=== PATIENT | female | born 1960 | race Caucasian/White ===

== ENCOUNTER → 2016-10-06 | Outpatient (CLI) | payer MEDICARE, OTHER ==
[~2016-10-06] MED LIST: ACYC200C PO; ACYC400T PO; ADV100 IH; ADV500 IH; ASPI-556 PO; CLON2 PO; COMBISP IH; CYCL10 PO; DIPH25 PO; DOCU250C91 PO; DSS100 PO; DULO60CA44 PO; FAMO-135 PO; IBUP-1547 PO; IBUP100O11 PO; IPRA3AMP4 IH; LACT1CAP38 PO; LEVO100 PO; LISI-622 PO; MELA3TAB10 PO; OLAN10TA3 PO; OLAN15TA2 PO; OXYC-522 PO; PERCT10 PO; RIVA20TA PO; SIMV-260 PO; TIOT4MIS2 IH; WARF7.5 PO; ZOLP5 PO; [UNRECOGNIZED DRUG - CODE] IM
[2016-10-06 11:52] VITALS: BP 128/70
[2016-10-06 14:46] LABS: GLUCOSE COMMENT 1 Doctor Notified; GLUCOSE,POINT OF CARE 82 MG/DL (70-110)
== END | disposition home or self-care (01) ==
LOC: SRCNTR 11:36
PROVIDERS: ATTEND Hospitalist
DX: J44.9 Chronic obstructive pulmonary disease, unspecified (principal); G47.33 Obstructive sleep apnea (adult) (pediatric); E66.01 Morbid (severe) obesity due to excess calories; G35 Multiple sclerosis; F99 Mental disorder, not otherwise specified; F41.9 Anxiety disorder, unspecified; M54.9 Dorsalgia, unspecified; Z72.0 Tobacco use
CPT/HCPCS: 82962; G0463

== ENCOUNTER → 2016-11-06 | Outpatient (CLI) | payer MEDICARE, OTHER ==
[~2016-11-06] VITALS: Ht 149.9 cm; Wt 83.0 kg
[~2016-11-06] MED LIST changes: -COMBISP IH; -CYCL10 PO; -FAMO-135 PO; -WARF7.5 PO
[2016-11-06 11:54] VITALS: BP 133/83
== END | disposition home or self-care (01) ==
LOC: SRCNTR 11:50
PROVIDERS: ATTEND Hospitalist
DX: I10 Essential (primary) hypertension (principal); E03.9 Hypothyroidism, unspecified; E78.5 Hyperlipidemia, unspecified; M54.5 Low back pain; G47.33 Obstructive sleep apnea (adult) (pediatric); F17.210 Nicotine dependence, cigarettes, uncomplicated; F41.9 Anxiety disorder, unspecified; G35 Multiple sclerosis; J44.9 Chronic obstructive pulmonary disease, unspecified; F99 Mental disorder, not otherwise specified; G89.4 Chronic pain syndrome; F32.9 Major depressive disorder, single episode, unspecified
CPT/HCPCS: G0463

== ENCOUNTER 2016-11-11 23:27 | Emergency (ER) | payer MEDICARE, OTHER ==
[~2016-11-11] VITALS: Ht 152.4 cm; Wt 95.0 kg
[~2016-11-11 23:27] MED LIST changes: -ACYC200C PO; -ADV100 IH; -DSS100 PO; -IBUP-1547 PO; -IBUP100O11 PO; -MELA3TAB10 PO; -OLAN10TA3 PO; -PERCT10 PO
[2016-11-11] MEDS ORDERED: SODIUM CHLORIDE 0.9% 1,000 ML IV ONE (23:40)
[2016-11-11] MEDS ORDERED: KETOROLAC TROMETHAMINE 60 MG/2 ML VIAL IM ONE (23:45)
[2016-11-11] MEDS ORDERED: ONDANSETRON HCL 4 MG/2 ML VIAL IVP ONE (23:45)
[2016-11-11] MEDS ORDERED: KETOROLAC TROMETHAMINE 30 MG/ML VIAL IVP ONE (23:45)
[2016-11-11] MEDS ORDERED: MELA3TAB10 PO (23:56)
[2016-11-11] MEDS ORDERED: IBUP100O11 PO (23:57)
[2016-11-12 01:23] VITALS: BP 128/65
[2016-11-17] MEDS ORDERED: PERCT10 PO (13:09)
[2016-11-17] MEDS ORDERED: ACYC200C PO (13:09)
[2016-11-17] MEDS ORDERED: CLON2 PO (13:09)
== END 2016-11-12 01:52 | disposition home or self-care (01) ==
LOC: EMS 23:28
DX: M16.11 Unilateral primary osteoarthritis, right hip (principal); I10 Essential (primary) hypertension; E78.00 Pure hypercholesterolemia, unspecified; J44.9 Chronic obstructive pulmonary disease, unspecified; F17.210 Nicotine dependence, cigarettes, uncomplicated; Z91.013 Allergy to seafood; Z88.8 Allergy status to other drugs, medicaments and biological substances; W19.XXXA Unspecified fall, initial encounter; Y93.89 Activity, other specified; Y92.89 Other specified places as the place of occurrence of the external cause; Y99.8 Other external cause status
CPT/HCPCS: 73502; 96372; 99284; J1885

== ENCOUNTER 2016-11-17 18:55 | Emergency (ER) | payer MEDICARE, OTHER ==
[~2016-11-17] VITALS: Ht 152.4 cm; Wt 72.7 kg
[~2016-11-17 18:55] MED LIST changes: -ADV100 IH; -ADV500 IH; -DSS100 PO; -IBUP-1547 PO; -KETOROLAC TROMETHAMINE 30 MG/ML VIAL IVP ONE; -OLAN10TA3 PO; -SIMV-260 PO; +SIMV20 PO
[2016-11-17] MEDS ORDERED: OxyCODONE HCL/ACETAMINOPHEN 5-325 MG TABLET PO ONE (22:30)
[2016-11-17 22:44] VITALS: BP 131/78
== END 2016-11-17 22:44 | disposition home or self-care (01) ==
LOC: EMS 18:59
DX: S32.591A Other specified fracture of right pubis, initial encounter for closed fracture (principal); G35 Multiple sclerosis; I10 Essential (primary) hypertension; F20.9 Schizophrenia, unspecified; J44.9 Chronic obstructive pulmonary disease, unspecified; F41.9 Anxiety disorder, unspecified; E78.00 Pure hypercholesterolemia, unspecified; F17.210 Nicotine dependence, cigarettes, uncomplicated; Z79.82 Long term (current) use of aspirin; Z91.013 Allergy to seafood; Z88.8 Allergy status to other drugs, medicaments and biological substances; W19.XXXA Unspecified fall, initial encounter; Y93.89 Activity, other specified; Y92.89 Other specified places as the place of occurrence of the external cause; Y99.8 Other external cause status
CPT/HCPCS: 99284; 99406

== ENCOUNTER → 2016-11-17 | Outpatient (CLI) | payer MEDICARE, OTHER ==
[~2016-11-17] MED LIST changes: +ACYC200C PO; -ACYC400T PO; +ADV100 IH; +DSS100 PO; +IBUP-1547 PO; +IBUP100O11 PO; -IPRA3AMP4 IH; +KETOROLAC TROMETHAMINE 30 MG/ML VIAL IVP ONE; -LACT1CAP38 PO; +MELA3TAB10 PO; +OLAN10TA3 PO; -OXYC-522 PO; +PERCT10 PO; -TIOT4MIS2 IH; -[UNRECOGNIZED DRUG - CODE] IM
[2016-11-17 12:35] VITALS: BP 145/92
== END | disposition home or self-care (01) ==
LOC: SRCNTR 12:11
PROVIDERS: ATTEND Hospitalist
DX: J44.9 Chronic obstructive pulmonary disease, unspecified (principal); M25.551 Pain in right hip; G35 Multiple sclerosis; F99 Mental disorder, not otherwise specified; G89.4 Chronic pain syndrome; G47.33 Obstructive sleep apnea (adult) (pediatric); F41.9 Anxiety disorder, unspecified; E03.9 Hypothyroidism, unspecified; M54.9 Dorsalgia, unspecified; E78.5 Hyperlipidemia, unspecified; F32.9 Major depressive disorder, single episode, unspecified; Z72.0 Tobacco use; Z71.6 Tobacco abuse counseling; Z91.81 History of falling
CPT/HCPCS: G0463; J1885

== ENCOUNTER 2016-11-18 22:55 | Emergency (ER) | payer MEDICARE, OTHER ==
[2016-11-20] MEDS ORDERED: OLAN10TA3 PO (18:58)
[2016-11-20] MEDS ORDERED: DSS100 PO (18:58)
[2016-11-20] MEDS ORDERED: IBUP-1547 PO (18:58)
[2016-11-20] MEDS ORDERED: ADV100 IH (22:37)
[2016-11-20] MEDS ORDERED: ADV500 IH (22:44)
[2016-11-20] MEDS ORDERED: MELA3TAB10 PO (22:49)
== END 2016-11-19 00:21 | disposition left against medical advice (07) ==
LOC: EMS 22:57
DX: M25.559 Pain in unspecified hip (principal); Z53.21 Procedure and treatment not carried out due to patient leaving prior to being seen by health care provider

== ENCOUNTER 2016-11-20 16:32 | Inpatient (IN) | payer MEDICARE, OTHER ==
[~2016-11-20 16:32] MED LIST changes: +SIMV-260 PO; -SIMV20 PO
[2016-11-20] MEDS ORDERED: OLAN10TA3 PO (18:58)
[2016-11-20] MEDS ORDERED: DSS100 PO (18:58)
[2016-11-20] MEDS ORDERED: IBUP-1547 PO (18:58)
[2016-11-20 19:00] VITALS: BP 109/58
[2016-11-20 19:24] VITALS: BP 127/76
[2016-11-20] MEDS: OxyCODONE HCL/ACETAMINOPHEN 10-325 MG TABLET PO PRN (19:31)
[2016-11-20] MEDS ORDERED: 0.9% SODIUM CHLORIDE 10 ML SYRINGE IVP PRN (20:00)
[2016-11-20] MEDS: OLANZapine 10 MG TABLET PO SCH (22:15)
[2016-11-20] MEDS ORDERED: ADV100 IH (22:37)
[2016-11-20] MEDS ORDERED: ADV500 IH (22:44)
[2016-11-20] MEDS ORDERED: MELA3TAB10 PO (22:49)
[2016-11-20] MEDS: ACYCLOVIR 200 MG CAPSULE PO SCH (23:36)
[2016-11-20] MEDS: RIVAROXABAN 20 MG TABLET PO SCH (23:36)
[2016-11-20] MEDS: FLUTICASONE/VILANTEROL 200-25 MCG/INH INHALER [14] IH SCH (23:36)
[2016-11-20] MEDS: SIMVASTATIN 20 MG TABLET PO SCH (23:36)
[2016-11-20] MEDS ORDERED: MAGNESIUM HYDROXIDE SUSPENSION 30 ML UDCUP PO PRN (23:45)
[2016-11-20] MEDS ORDERED: ONDANSETRON HCL 4 MG/2 ML VIAL IVP PRN (23:45)
[2016-11-20] MEDS ORDERED: ACETAMINOPHEN 325 MG TABLET PO PRN (23:45)
[2016-11-20] MEDS ORDERED: BISACODYL 10 MG RECTAL RECTAL SUPPOSITORY PR PRN (23:45)
[2016-11-20 23:49] VITALS: BP 118/59
[2016-11-21 00:37] LABS: BASOPHILS % (AUTO) 0.2 % (0.0-2.0); EOSINOPHILS % (AUTO) 1.9 % (1.0-6.0); HEMATOCRIT 36.7 % (36-46); HEMOGLOBIN 11.7 g/dL (12.0-16.0); LYMPHOCYTES # (AUTO) 2.6 K/uL (1.0-4.8); LYMPHOCYTES % (AUTO) 23.6 % (22.0-44.0); MEAN CORPUSCULAR HEMOGLOBIN 28.1 pg (26.0-34.0); MEAN CORPUSCULAR HGB CONC 31.9 G/dL (31.0-37.0); MEAN CORPUSCULAR VOLUME 88 fL (80-100); MONOCYTES # (AUTO) 0.8 K/uL (0.1-1.0); MONOCYTES % (AUTO) 6.9 % (2.0-9.0); NEUTROPHILS # (AUTO) 7.4 K/uL (1.8-7.7); NEUTROPHILS % (AUTO) 67.4 % (40.0-70.0); PLATELET COUNT (AUTO) 313 K/uL (150-450); RED BLOOD CELL COUNT(AUTO) 4.17 MIL/uL (4.00-5.20); RED CELL DISTRIBUTION WIDTH 16.5 % (11.5-14.5)
[2016-11-21 00:51] LABS: ANION GAP 3 mmol/L (8-16); CALCIUM, TOTAL 8.5 mg/dL (8.8-10.5); CARBON DIOXIDE 35 mmol/L (22-29); CHLORIDE 88 mmol/L (98-107); CREATININE 0.77 mg/dL (0.60-1.30); GLOMERULAR FILTR. RATE CALC > 60 mL/min (>60); POTASSIUM 3.2 mmol/L (3.5-5.1); SODIUM SERUM 126 mmol/L (136-145); UREA NITROGEN, BLOOD 6 mg/dL (7-18)
[2016-11-21 00:57] LABS: ALANINE AMINOTRANSFERASE 10 U/L (12-78); ALBUMIN 2.9 g/dL (3.4-5.0); ASPARTATE AMINOTRANSFERASE 9 U/L (15-37); BILIRUBIN,TOTAL 0.2 mg/dL (0.1-1.0); TOTAL PROTEIN, SERUM 6.4 g/dL (6.4-8.2)
[2016-11-21] MEDS: OxyCODONE HCL/ACETAMINOPHEN 10-325 MG TABLET PO PRN ×4 (02:16→22:37)
[2016-11-21 04:51] VITALS: BP 117/65
[2016-11-21 05:58] LABS: BASOPHILS % (AUTO) 0.3 % (0.0-2.0); EOSINOPHILS % (AUTO) 2.8 % (1.0-6.0); HEMATOCRIT 38.2 % (36-46); HEMOGLOBIN 12.1 g/dL (12.0-16.0); LYMPHOCYTES # (AUTO) 2.5 K/uL (1.0-4.8); LYMPHOCYTES % (AUTO) 27.9 % (22.0-44.0); MEAN CORPUSCULAR HEMOGLOBIN 28.1 pg (26.0-34.0); MEAN CORPUSCULAR HGB CONC 31.7 G/dL (31.0-37.0); MEAN CORPUSCULAR VOLUME 89 fL (80-100); MONOCYTES # (AUTO) 0.7 K/uL (0.1-1.0); NEUTROPHILS # (AUTO) 5.4 K/uL (1.8-7.7); PLATELET COUNT (AUTO) 316 K/uL (150-450); RED CELL DISTRIBUTION WIDTH 16.1 % (11.5-14.5); WHITE BLOOD COUNT (AUTO) 8.9 K/uL (4.5-11.0)
[2016-11-21] MEDS: LEVOTHYROXINE SODIUM 100 MCG TABLET PO SCH (06:10)
[2016-11-21 06:18] LABS: ANION GAP 1 mmol/L (8-16); CALCIUM, TOTAL 8.6 mg/dL (8.8-10.5); CARBON DIOXIDE 35 mmol/L (22-29); CHLORIDE 90 mmol/L (98-107); CREATININE 0.65 mg/dL (0.60-1.30); GLOMERULAR FILTR. RATE CALC > 60 mL/min (>60); POTASSIUM 3.2 mmol/L (3.5-5.1); SODIUM SERUM 126 mmol/L (136-145); UREA NITROGEN, BLOOD 6 mg/dL (7-18)
[2016-11-21 07:34] VITALS: BP 112/59
[2016-11-21] MEDS: DULoxetine HCL 60 MG CAPSULE PO SCH (08:00)
[2016-11-21] MEDS: PANTOPRAZOLE SODIUM 40 MG/VIAL IVP SCH (08:00)
[2016-11-21] MEDS: ClonazePAM 1 MG TABLET PO SCH ×3 (08:01→20:13)
[2016-11-21] MEDS: OLANZapine 10 MG TABLET PO SCH ×2 (08:01→20:13)
[2016-11-21] MEDS: ACYCLOVIR 200 MG CAPSULE PO SCH ×2 (08:01→20:13)
[2016-11-21] MEDS: ASPIRIN 81 MG EC TABLET PO SCH (08:01)
[2016-11-21] MEDS: LISINOPRIL 5 MG TABLET PO SCH (08:02)
[2016-11-21] MEDS: DOCUSATE SODIUM 100 MG CAPSULE PO SCH ×2 (08:09→21:00)
[2016-11-21] MEDS ORDERED: DOCUSATE SODIUM 100 MG CAPSULE PO SCH (09:00)
[2016-11-21 09:19] VITALS: BP 106/69
[2016-11-21] MEDS ORDERED: POTASSIUM CHLORIDE 20 MEQ ER TABLET PO ONE (10:30)
[2016-11-21] MEDS: ALBUTEROL SULFATE 2.5 MG/0.5 ML NEB SOLUTION NEB PRN ×2 (11:07→18:52)
[2016-11-21] MEDS: IPRATROPIUM BROMIDE 0.5 MG/2.5 ML NEB SOLUTION NEB PRN ×2 (11:07→18:52)
[2016-11-21 12:05] VITALS: BP 109/58
[2016-11-21] MEDS: MORPHINE SULFATE 4 MG/ML SYRINGE IVP PRN (15:32)
[2016-11-21] MEDS: RIVAROXABAN 20 MG TABLET PO SCH (18:28)
[2016-11-21 20:03] VITALS: BP 125/84
[2016-11-21] MEDS: SIMVASTATIN 20 MG TABLET PO SCH (20:13)
[2016-11-21] MEDS: FLUTICASONE/SALMETEROL 500 MCG-50 MCG/INH DISKUS INHALER [28] IH SCH (20:16)
[2016-11-21] MEDS ORDERED: ZOLPIDEM TARTRATE 5 MG TABLET PO SCH (21:00)
[2016-11-21] MEDS: FLUTICASONE/VILANTEROL 200-25 MCG/INH INHALER [14] IH SCH (21:00)
[2016-11-21] MEDS ORDERED: MELATONIN 3 MG TABLET PO PRN (21:00)
[2016-11-21] MEDS: ZOLPIDEM TARTRATE 5 MG TABLET PO PRN (22:38)
[2016-11-21 23:11] VITALS: BP 111/72
[2016-11-22] MEDS: HEPARIN SODIUM,PORCINE 5,000 UNITS/ML VIAL SQ SCH ×4 (00:25→23:40)
[2016-11-22] MEDS: OxyCODONE HCL/ACETAMINOPHEN 10-325 MG TABLET PO PRN ×5 (05:36→23:50)
[2016-11-22] MEDS: LEVOTHYROXINE SODIUM 100 MCG TABLET PO SCH (05:36)
[2016-11-22 05:59] VITALS: BP 133/78
[2016-11-22 06:49] LABS: BASOPHILS # (AUTO) 0.03 K/uL (0.00-0.20); BASOPHILS % (AUTO) 0.3 % (0.0-2.0); EOSINOPHILS # (AUTO) 0.21 K/uL (0.00-0.70); EOSINOPHILS % (AUTO) 2.04 % (1.0-6.0); HEMATOCRIT 40.2 % (36-46); HEMOGLOBIN 12.9 g/dL (12.0-16.0); LYMPHOCYTES # (AUTO) 3.2 K/uL (1.0-4.8); LYMPHOCYTES % (AUTO) 32.1 % (22.0-44.0); MEAN CORPUSCULAR HEMOGLOBIN 28.2 pg (26.0-34.0); MEAN CORPUSCULAR HGB CONC 32.1 G/dL (31.0-37.0); MEAN CORPUSCULAR VOLUME 88 fL (80-100); MONOCYTES # (AUTO) 0.7 K/uL (0.1-1.0); MONOCYTES % (AUTO) 7.4 % (2.0-9.0); NEUTROPHILS # (AUTO) 5.9 K/uL (1.8-7.7); NEUTROPHILS % (AUTO) 58.2 % (40.0-70.0); PLATELET COUNT (AUTO) 353 K/uL (150-450); RED BLOOD CELL COUNT(AUTO) 4.57 MIL/uL (4.00-5.20); RED CELL DISTRIBUTION WIDTH 16.9 % (11.5-14.5); WHITE BLOOD COUNT (AUTO) 10.1 K/uL (4.5-11.0)
[2016-11-22 06:53] LABS: ANION GAP 3 mmol/L (8-16); CALCIUM, TOTAL 8.8 mg/dL (8.8-10.5); CARBON DIOXIDE 34 mmol/L (22-29); CHLORIDE 97 mmol/L (98-107); CREATININE 0.65 mg/dL (0.60-1.30); GLOMERULAR FILTR. RATE CALC > 60 mL/min (>60); POTASSIUM 4.5 mmol/L (3.5-5.1); SODIUM SERUM 134 mmol/L (136-145); UREA NITROGEN, BLOOD 7 mg/dL (7-18)
[2016-11-22] MEDS: IPRATROPIUM BROMIDE 0.5 MG/2.5 ML NEB SOLUTION NEB PRN ×2 (07:20→19:31)
[2016-11-22] MEDS: ALBUTEROL SULFATE 2.5 MG/0.5 ML NEB SOLUTION NEB PRN ×2 (07:20→19:31)
[2016-11-22 07:34] VITALS: BP 134/74
[2016-11-22] MEDS: DOCUSATE SODIUM 100 MG CAPSULE PO SCH ×3 (08:45→20:51)
[2016-11-22] MEDS: PANTOPRAZOLE SODIUM 40 MG/VIAL IVP SCH (08:45)
[2016-11-22] MEDS: ClonazePAM 1 MG TABLET PO SCH ×3 (08:45→19:45)
[2016-11-22] MEDS: ASPIRIN 81 MG EC TABLET PO SCH (08:45)
[2016-11-22] MEDS: DULoxetine HCL 60 MG CAPSULE PO SCH (08:46)
[2016-11-22] MEDS: FLUTICASONE/SALMETEROL 500 MCG-50 MCG/INH DISKUS INHALER [28] IH SCH ×2 (08:46→19:46)
[2016-11-22] MEDS: LISINOPRIL 5 MG TABLET PO SCH (08:46)
[2016-11-22] MEDS: TIOTROPIUM BROMIDE 18 MCG/INH HANDIHALER [5] IH SCH (08:46)
[2016-11-22] MEDS: OLANZapine 10 MG TABLET PO SCH ×2 (08:47→22:01)
[2016-11-22] MEDS: ACYCLOVIR 200 MG CAPSULE PO SCH ×2 (08:47→19:45)
[2016-11-22] MEDS: DiphenhydrAMINE HCL 25 MG CAPSULE PO PRN (14:29)
[2016-11-22 15:39] VITALS: BP 125/76
[2016-11-22] MEDS: RIVAROXABAN 20 MG TABLET PO SCH (18:00)
[2016-11-22] MEDS: ZOLPIDEM TARTRATE 5 MG TABLET PO PRN (19:44)
[2016-11-22] MEDS: SIMVASTATIN 20 MG TABLET PO SCH (19:45)
[2016-11-22 20:00] VITALS: BP 134/65
[2016-11-22] MEDS: GuaiFENesin/D-METHORPHAN/PHENYLEPH 5 ML LIQUID ORAL.SYG PO PRN (22:37)
[2016-11-22 23:01] VITALS: BP 117/75
[2016-11-23 05:10] VITALS: BP 133/78
[2016-11-23] MEDS: GuaiFENesin/D-METHORPHAN/PHENYLEPH 5 ML LIQUID ORAL.SYG PO PRN (05:33)
[2016-11-23] MEDS: LEVOTHYROXINE SODIUM 100 MCG TABLET PO SCH (05:33)
[2016-11-23 06:05] LABS: BASOPHILS % (AUTO) 0.8 % (0.0-2.0); EOSINOPHILS % (AUTO) 2.9 % (1.0-6.0); HEMATOCRIT 41.4 % (36-46); HEMOGLOBIN 12.9 g/dL (12.0-16.0); LYMPHOCYTES # (AUTO) 3.1 K/uL (1.0-4.8); MEAN CORPUSCULAR HEMOGLOBIN 27.9 pg (26.0-34.0); MEAN CORPUSCULAR HGB CONC 31.2 G/dL (31.0-37.0); MEAN CORPUSCULAR VOLUME 89 fL (80-100); MONOCYTES # (AUTO) 0.5 K/uL (0.1-1.0); MONOCYTES % (AUTO) 5.5 % (2.0-9.0); NEUTROPHILS # (AUTO) 5.7 K/uL (1.8-7.7); NEUTROPHILS % (AUTO) 58.8 % (40.0-70.0); PLATELET COUNT (AUTO) 368 K/uL (150-450); RED BLOOD CELL COUNT(AUTO) 4.63 MIL/uL (4.00-5.20); RED CELL DISTRIBUTION WIDTH 16.1 % (11.5-14.5); WHITE BLOOD COUNT (AUTO) 9.7 K/uL (4.5-11.0)
[2016-11-23 07:02] LABS: ANION GAP 6 mmol/L (8-16); CALCIUM, TOTAL 8.9 mg/dL (8.8-10.5); CARBON DIOXIDE 33 mmol/L (22-29); CHLORIDE 95 mmol/L (98-107); CREATININE 0.61 mg/dL (0.60-1.30); GLOMERULAR FILTR. RATE CALC > 60 mL/min (>60); POTASSIUM 4.5 mmol/L (3.5-5.1); SODIUM SERUM 134 mmol/L (136-145); UREA NITROGEN, BLOOD 8 mg/dL (7-18)
[2016-11-23 08:38] VITALS: BP 143/82
[2016-11-23] MEDS: HEPARIN SODIUM,PORCINE 5,000 UNITS/ML VIAL SQ SCH ×3 (08:44→23:37)
[2016-11-23] MEDS: ClonazePAM 1 MG TABLET PO SCH ×3 (08:45→20:22)
[2016-11-23] MEDS: ASPIRIN 81 MG EC TABLET PO SCH (08:45)
[2016-11-23] MEDS: PANTOPRAZOLE SODIUM 40 MG/VIAL IVP SCH (08:45)
[2016-11-23] MEDS: DOCUSATE SODIUM 100 MG CAPSULE PO SCH ×2 (08:45→20:22)
[2016-11-23] MEDS: LISINOPRIL 5 MG TABLET PO SCH (08:46)
[2016-11-23] MEDS: ACYCLOVIR 200 MG CAPSULE PO SCH ×2 (08:46→20:22)
[2016-11-23] MEDS: DULoxetine HCL 60 MG CAPSULE PO SCH (08:47)
[2016-11-23] MEDS: TIOTROPIUM BROMIDE 18 MCG/INH HANDIHALER [5] IH SCH (08:48)
[2016-11-23] MEDS: FLUTICASONE/SALMETEROL 500 MCG-50 MCG/INH DISKUS INHALER [28] IH SCH ×2 (08:48→20:22)
[2016-11-23] MEDS: OLANZapine 10 MG TABLET PO SCH ×2 (08:49→20:21)
[2016-11-23] MEDS: OxyCODONE HCL/ACETAMINOPHEN 10-325 MG TABLET PO PRN ×2 (09:00→20:22)
[2016-11-23 12:01] VITALS: BP 123/69
[2016-11-23] MEDS: MORPHINE SULFATE 4 MG/ML SYRINGE IVP PRN ×2 (12:39→17:02)
[2016-11-23] MEDS: DiphenhydrAMINE HCL 25 MG CAPSULE PO PRN (12:44)
[2016-11-23 16:38] VITALS: BP 114/76
[2016-11-23] MEDS: RIVAROXABAN 20 MG TABLET PO SCH (16:58)
[2016-11-23 19:46] VITALS: BP 126/76
[2016-11-23] MEDS: SIMVASTATIN 20 MG TABLET PO SCH (20:21)
[2016-11-23] MEDS: ZOLPIDEM TARTRATE 5 MG TABLET PO PRN (20:22)
[2016-11-23 23:15] VITALS: BP 122/74
[2016-11-24] VITALS (7 sets, daily range): BP systolic 103–151; BP diastolic 64–86
[2016-11-24] MEDS: LEVOTHYROXINE SODIUM 100 MCG TABLET PO SCH (05:43)
[2016-11-24 06:40] LABS: BASOPHILS # (AUTO) 0.07 K/uL (0.00-0.20); BASOPHILS % (AUTO) 0.7 % (0.0-2.0); EOSINOPHILS % (AUTO) 3.25 % (1.0-6.0); HEMATOCRIT 40.2 % (36-46); HEMOGLOBIN 12.9 g/dL (12.0-16.0); LYMPHOCYTES # (AUTO) 3.1 K/uL (1.0-4.8); LYMPHOCYTES % (AUTO) 33.2 % (22.0-44.0); MEAN CORPUSCULAR HEMOGLOBIN 28.6 pg (26.0-34.0); MEAN CORPUSCULAR HGB CONC 32.2 G/dL (31.0-37.0); MEAN CORPUSCULAR VOLUME 89 fL (80-100); MONOCYTES # (AUTO) 0.5 K/uL (0.1-1.0); MONOCYTES % (AUTO) 5.2 % (2.0-9.0); NEUTROPHILS # (AUTO) 5.4 K/uL (1.8-7.7); NEUTROPHILS % (AUTO) 57.7 % (40.0-70.0); PLATELET COUNT (AUTO) 371 K/uL (150-450); RED BLOOD CELL COUNT(AUTO) 4.52 MIL/uL (4.00-5.20); RED CELL DISTRIBUTION WIDTH 16.8 % (11.5-14.5); WHITE BLOOD COUNT (AUTO) 9.3 K/uL (4.5-11.0)
[2016-11-24] MEDS: OxyCODONE HCL/ACETAMINOPHEN 10-325 MG TABLET PO PRN ×3 (07:58→23:18)
[2016-11-24] MEDS: DOCUSATE SODIUM 100 MG CAPSULE PO SCH ×2 (07:59→20:11)
[2016-11-24] MEDS: FLUTICASONE/SALMETEROL 500 MCG-50 MCG/INH DISKUS INHALER [28] IH SCH ×2 (07:59→20:10)
[2016-11-24] MEDS: ClonazePAM 1 MG TABLET PO SCH ×3 (07:59→20:11)
[2016-11-24] MEDS: TIOTROPIUM BROMIDE 18 MCG/INH HANDIHALER [5] IH SCH (08:00)
[2016-11-24] MEDS: ACYCLOVIR 200 MG CAPSULE PO SCH ×2 (08:00→20:11)
[2016-11-24] MEDS: OLANZapine 10 MG TABLET PO SCH ×2 (08:00→20:11)
[2016-11-24] MEDS: DULoxetine HCL 60 MG CAPSULE PO SCH (08:00)
[2016-11-24] MEDS: PANTOPRAZOLE SODIUM 40 MG/VIAL IVP SCH (08:01)
[2016-11-24] MEDS: HEPARIN SODIUM,PORCINE 5,000 UNITS/ML VIAL SQ SCH ×3 (08:01→23:17)
[2016-11-24] MEDS: ASPIRIN 81 MG EC TABLET PO SCH (08:06)
[2016-11-24] MEDS: LISINOPRIL 5 MG TABLET PO SCH ×2 (09:00→15:46)
[2016-11-24] MEDS: MORPHINE SULFATE 4 MG/ML SYRINGE IVP PRN (11:08)
[2016-11-24] MEDS: RIVAROXABAN 20 MG TABLET PO SCH (17:52)
[2016-11-24] MEDS: SIMVASTATIN 20 MG TABLET PO SCH (20:11)
[2016-11-24] MEDS: ZOLPIDEM TARTRATE 5 MG TABLET PO PRN (23:04)
[2016-11-25 05:27] VITALS: BP 110/72
[2016-11-25] MEDS: LEVOTHYROXINE SODIUM 100 MCG TABLET PO SCH (06:22)
[2016-11-25 06:38] LABS: BASOPHILS % (AUTO) 0.5 % (0.0-2.0); EOSINOPHILS % (AUTO) 3.5 % (1.0-6.0); HEMATOCRIT 40.4 % (36-46); HEMOGLOBIN 12.7 g/dL (12.0-16.0); LYMPHOCYTES # (AUTO) 2.9 K/uL (1.0-4.8); LYMPHOCYTES % (AUTO) 32.5 % (22.0-44.0); MEAN CORPUSCULAR HEMOGLOBIN 27.9 pg (26.0-34.0); MEAN CORPUSCULAR HGB CONC 31.4 G/dL (31.0-37.0); MEAN CORPUSCULAR VOLUME 89 fL (80-100); MONOCYTES # (AUTO) 0.5 K/uL (0.1-1.0); MONOCYTES % (AUTO) 5.3 % (2.0-9.0); NEUTROPHILS # (AUTO) 5.2 K/uL (1.8-7.7); NEUTROPHILS % (AUTO) 58.2 % (40.0-70.0); PLATELET COUNT (AUTO) 374 K/uL (150-450); RED BLOOD CELL COUNT(AUTO) 4.55 MIL/uL (4.00-5.20); RED CELL DISTRIBUTION WIDTH 16.8 % (11.5-14.5); WHITE BLOOD COUNT (AUTO) 8.9 K/uL (4.5-11.0)
[2016-11-25 07:30] VITALS: BP 104/62
[2016-11-25] MEDS: FLUTICASONE/SALMETEROL 500 MCG-50 MCG/INH DISKUS INHALER [28] IH SCH (07:57)
[2016-11-25] MEDS: PANTOPRAZOLE SODIUM 40 MG/VIAL IVP SCH (07:58)
[2016-11-25] MEDS: ClonazePAM 1 MG TABLET PO SCH (07:58)
[2016-11-25] MEDS: TIOTROPIUM BROMIDE 18 MCG/INH HANDIHALER [5] IH SCH (07:58)
[2016-11-25] MEDS: LISINOPRIL 5 MG TABLET PO SCH (07:58)
[2016-11-25] MEDS: ACYCLOVIR 200 MG CAPSULE PO SCH (07:59)
[2016-11-25] MEDS: OLANZapine 10 MG TABLET PO SCH (07:59)
[2016-11-25] MEDS: DULoxetine HCL 60 MG CAPSULE PO SCH (07:59)
[2016-11-25] MEDS: DOCUSATE SODIUM 100 MG CAPSULE PO SCH (08:00)
[2016-11-25] MEDS: HEPARIN SODIUM,PORCINE 5,000 UNITS/ML VIAL SQ SCH (08:00)
[2016-11-25] MEDS: ASPIRIN 81 MG EC TABLET PO SCH (08:05)
[2016-11-25] MEDS: MORPHINE SULFATE 4 MG/ML SYRINGE IVP PRN (08:05)
[2016-11-25 11:30] VITALS: BP 118/65
[2016-11-25] MEDS: OxyCODONE HCL/ACETAMINOPHEN 10-325 MG TABLET PO PRN (12:10)
[2016-11-25 15:08] VITALS: BP 120/70
== END 2016-11-25 15:45 | DRG 536 ==
LOC: 6N 18:13
PROVIDERS: ADMIT Hospitalist; ATTEND Hospitalist
DX: S32.592A Other specified fracture of left pubis, initial encounter for closed fracture (principal); M87.9 Osteonecrosis, unspecified; E87.1 Hypo-osmolality and hyponatremia; E44.0 Moderate protein-calorie malnutrition; G35 Multiple sclerosis; I10 Essential (primary) hypertension; J44.9 Chronic obstructive pulmonary disease, unspecified; F25.9 Schizoaffective disorder, unspecified; F17.210 Nicotine dependence, cigarettes, uncomplicated; E78.5 Hyperlipidemia, unspecified; E78.00 Pure hypercholesterolemia, unspecified; E03.9 Hypothyroidism, unspecified; F41.9 Anxiety disorder, unspecified; G47.33 Obstructive sleep apnea (adult) (pediatric); M19.019 Primary osteoarthritis, unspecified shoulder; F99 Mental disorder, not otherwise specified; W19.XXXA Unspecified fall, initial encounter; Z63.8 Other specified problems related to primary support group; Z91.81 History of falling; Z88.2 Allergy status to sulfonamides; Z88.8 Allergy status to other drugs, medicaments and biological substances; Z91.048 Other nonmedicinal substance allergy status; Z99.3 Dependence on wheelchair; Z79.1 Long term (current) use of non-steroidal anti-inflammatories (NSAID); Z79.82 Long term (current) use of aspirin; Z79.891 Long term (current) use of opiate analgesic; Y93.89 Activity, other specified; Y92.89 Other specified places as the place of occurrence of the external cause; Y99.8 Other external cause status; Z79.899 Other long term (current) drug therapy; Z98.890 Other specified postprocedural states
CPT/HCPCS: 72170; 73200; 73221; 87081; 94640; 97161; 97530; C9113; J1644; J2270; J3535

== ENCOUNTER → 2017-01-25 | Outpatient (CLI) | payer MEDICARE, OTHER ==
[~2017-01-25] MED LIST changes: +ADV500 IH; -DOCU250C91 PO; +DSS100 PO; +IBUP-1547 PO; -IBUP100O11 PO; +LACT1CAP62 PO; +OLAN10TA3 PO; -OLAN15TA2 PO; +SOLI5 PO; +TIOT4MIS2 PO; +VITAD50000 PO
[2017-01-25 09:19] VITALS: BP 111/63
== END | disposition home or self-care (01) ==
LOC: SRCNTR 09:14
PROVIDERS: ATTEND Hospitalist
DX: J44.9 Chronic obstructive pulmonary disease, unspecified (principal); G47.33 Obstructive sleep apnea (adult) (pediatric); E66.9 Obesity, unspecified; F17.200 Nicotine dependence, unspecified, uncomplicated; G35 Multiple sclerosis; E03.9 Hypothyroidism, unspecified; S32.9XXD Fracture of unspecified parts of lumbosacral spine and pelvis, subsequent encounter for fracture with routine healing; X58.XXXD Exposure to other specified factors, subsequent encounter
CPT/HCPCS: G0463